=== PATIENT | female | born 1975 | race African-American/Black ===

== ENCOUNTER → 2020-12-13 | Outpatient (CLI) | payer MEDICAID, OTHER ==
--- NOTE | 2020-12-14 07:18 | MR ---
EXAMINATION TYPE: MR knee RT wo con DATE OF EXAM: 12/13/2020 COMPARISON: None. HISTORY: Right inner and outer left knee pain and swelling since 2-16-21 due to slipping and falling at work. TECHNIQUE: Multiplanar, multisequence imaging of the right knee is performed without IV contrast. FINDINGS: MEDIAL MENISCUS: Anterior and posterior horns are intact without tear. LATERAL MENISCUS: Anterior and posterior horns are intact without tear. CRUCIATE LIGAMENTS: The anterior and posterior cruciate ligaments are intact and unremarkable. COLLATERAL LIGAMENTS: The medial collateral ligament and lateral collateral ligament complex are inta ct and unremarkable. EXTENSOR MECHANISM: Visualized quadriceps and patellar tendons are intact. EFFUSION: No significant suprapatellar joint effusion. POPLITEAL CYST: No popliteal/garcia cyst. TRICOMPARTMENT SPACES: No significant spurring or tricompartment joint space loss. CARTILAGE: Tricompartment articular cartilage maintained. BONE MARROW SIGNAL: Small focus of increased T2 signal medial anterior aspect distal lateral femoral condyle over roughly 1.8 cm segment sagittal image 18, likely small residual focus of osseous contusi on injury. OTHER: No additional significant abnormality is appreciated. IMPRESSION: No meniscal or ligamentous tear is seen. Small focus of residual osseous contusion injury suspected anterior medial aspect distal lateral femoral condyle.
== END | disposition home or self-care (01) ==
LOC: RADMRIMAIN 19:03
PROVIDERS: ATTEND Family Medicine
DX: S80.01XA Contusion of right knee, initial encounter (principal)